=== PATIENT | male | born 1995 | race Two or more races ===

== ENCOUNTER → 2018-04-03 | Outpatient (CLI) | payer OTHER ==
[2018-04-04 09:04] LABS: Hepatitis B Surface Antibody Negative
[2018-04-04 10:16] LABS: Hepatitis B Surface Antigen Negative (Negative)
== END | disposition home or self-care (01) ==
LOC: LAB 10:46
PROVIDERS: ATTEND Nurse Practitioner
DX: Z15.89 Genetic susceptibility to other disease (principal)
CPT/HCPCS: 36415; 86703; 86706; 86803; 87340